=== PATIENT | female | born 1985 | race American Indian/Alaskan Native ===

== ENCOUNTER 2020-03-24 20:21 | Emergency (ER) | payer SELFPAY ==
[2020-03-24 22:17] VITALS: BP 141/74
--- NOTE | 2020-03-24 23:01 | XRay Report ---
CHEST 2 VIEWS INDICATION / CLINICAL INFORMATION: Shortness of breath, cough. COMPARISON: None available. FINDINGS: SUPPORT DEVICES: None. HEART / MEDIASTINUM: No significant abnormality. LUNGS / PLEURA: No significant pulmonary or pleural abnormality. No pneumothorax. ADDITIONAL FINDINGS: No significant additional findings. IMPRESSION: 1. No acute findings. Signer Name: Prema Bro MD Signed: 03/24/2020 10:57 PM Workstation Name: [id number]
[2020-03-25] MEDS ORDERED: predniSONE 20 MG TAB PO ONE (01:49)
[2020-03-25] MEDS ORDERED: ACETAMINOPHEN 500 MG TAB PO ONE (01:49)
--- NOTE | 2020-03-25 02:33 | Emergency Department Report ---
- General Chief Complaint: Upper Respiratory Infection Stated Complaint: COUGH, SHORTNESS OF BREATH Source: EMS Mode of arrival: Ambulatory Limitations: No Limitations - History of Present Illness Initial Comments: Patient is a 34-year-old -[place] female with a history of heavy tobacco abuse who presents to the ED with complaint of acute onset persistent nasal and sinus congestion, frontal sinus pressure and headache, persistent dry cough with pleuritic chest pain for the last 2 weeks. Patient states that her own daughter has had similar symptoms. Patient denies fever, chills, nausea, vomiting, dizziness, syncope, abdominal pain, sore throat, dysuria, urinary frequency and urgency, chest pain, shortness of breath, change in vision, palpitations, neck pain or back pain. MD Complaint: cough, nasal congestion, sinus pain -: Sudden, week(s) (2) Severity: moderate Severity scale (0 -10): 4 Quality: dull, aching Consistency: constant Improves With: nothing Worsens With: nothing Context: sick contacts Associated Symptoms: denies other symptoms, chills, headache, rhinorrhea, nasal congestion, cough. denies: fever, diaphoresis, sore throat, chest pain, shortness of breath, abdominal pain, nausea, vomiting, diarrhea, dysuria, rash, right sweats, weight loss, epistaxis, ear pain, other Treatments Prior to Arrival: none - Related Data Previous Rx's Medication Instructions Recorded Last Taken Type Azithromycin [Zithromax Z-BERNADETTE] 250 mg PO DAILY #6 tablet 03/25/20 Unknown Rx Benzonatate [Tessalon Perles] 100 mg PO Q8HR #30 capsule 03/25/20 Unknown Rx Cetirizine HCl [Zyrtec 10mg tab] 10 mg PO DAILY #30 tablet 03/25/20 Unknown Rx Ibuprofen [Motrin] 800 mg PO Q8HR PRN #24 tablet 03/25/20 Unknown Rx predniSONE [Deltasone] 40 mg PO QDAY #10 tab 03/25/20 Unknown Rx Allergies Allergy/AdvReac Type Severity Reaction Status Date / Time No Known Allergies Allergy Unverified 03/07/13 00:44 ED Review of Systems ROS: Stated complaint: COUGH, SHORTNESS OF BREATH Other details as noted in HPI Constitutional: denies: chills, fever Eyes: denies: eye pain, eye discharge, vision change ENT: congestion, other (Frontal sinus pressure). denies: ear pain, throat pain Respiratory: cough. denies: shortness of breath, wheezing Cardiovascular: denies: chest pain, palpitations Endocrine: no symptoms reported Gastrointestinal: denies: abdominal pain, nausea, diarrhea Genitourinary: denies: urgency, dysuria, discharge Musculoskeletal: denies: back pain, joint swelling, arthralgia Skin: denies: rash, lesions Neurological: denies: headache, weakness, paresthesias Psychiatric: denies: anxiety, depression Hematological/Lymphatic: denies: easy bleeding, easy bruising ED Past Medical Hx - Past Medical History Previous Medical History?: No - Surgical History Hx Breast Surgery: Yes - Social History Smoking Status: Current Some Day Smoker Substance Use Type: None - Medications Home Medications: Home Medications Medication Instructions Recorded Confirmed Last Taken Type Azithromycin [Zithromax Z-BERNADETTE] 250 mg PO DAILY #6 tablet 03/25/20 Unknown Rx Benzonatate [Tessalon Perles] 100 mg PO Q8HR #30 capsule 03/25/20 Unknown Rx Cetirizine HCl [Zyrtec 10mg tab] 10 mg PO DAILY #30 tablet 03/25/20 Unknown Rx Ibuprofen [Motrin] 800 mg PO Q8HR PRN #24 tablet 03/25/20 Unknown Rx predniSONE [Deltasone] 40 mg PO QDAY #10 tab 03/25/20 Unknown Rx ED Physical Exam - General Limitations: No Limitations General appearance: alert, in no apparent distress - Head Head exam: Present: atraumatic, normocephalic, normal inspection - Eye Eye exam: Present: normal appearance, PERRL, EOMI Pupils: Present: normal accommodation - ENT ENT exam: Present: mucous membranes moist, TM's normal bilaterally, normal external ear exam, other (Grossly congested nasal passages, palpable frontal sinus tenderness) - Neck Neck exam: Present: normal inspection, full ROM - Respiratory Respiratory exam: Present: normal lung sounds bilaterally. Absent: respiratory distress, wheezes, rales, rhonchi, chest wall tenderness, accessory muscle use, decreased breath sounds - Cardiovascular Cardiovascular Exam: Present: regular rate, normal rhythm, normal heart sounds. Absent: systolic murmur, diastolic murmur, rubs, gallop - GI/Abdominal GI/Abdominal exam: Present: soft, normal bowel sounds. Absent: tenderness, guarding, rebound, hyperactive bowel sounds, hypoactive bowel sounds, organomegaly - Extremities Exam Extremities exam: Present: normal inspection, full ROM, normal capillary refill - Back Exam Back exam: Present: normal inspection - Neurological Exam Neurological exam: Present: alert, oriented X3 - Psychiatric Psychiatric exam: Present: normal affect, normal mood - Skin Skin exam: Present: warm, dry, intact, normal color. Absent: rash ED Course Vital Signs 03/24/20 22:12 Temperature 98.0 F Pulse Rate 90 Respiratory 18 Rate Blood Pressure 141/74 O2 Sat by Pulse 100 Oximetry ED Medical Decision Making - Radiology Data Radiology results: report reviewed, image reviewed Findings [facility] [address] [place] [address] XRay Report Signed Patient: STACEY TANNER MR #: [id number] : 1985 Acct:[id number] Age/Sex: 34 / F ADM Date: 03/24/20 Loc: ED Attending Dr: Ordering Physician: ED MD PRIMO Date of Service: 03/24/20 Procedure(s): XR chest routine 2V Accession Number(s): [id number] cc: ED DOCMD Fluoro Time In Minutes: CHEST 2 VIEWS INDICATION / CLINICAL INFORMATION: Shortness of breath, cough. COMPARISON: None available. FINDINGS: SUPPORT DEVICES: None. HEART / MEDIASTINUM: No significant abnormality. LUNGS / PLEURA: No significant pulmonary or pleural abnormality. No pneumothorax. ADDITIONAL FINDINGS: No significant additional findings. IMPRESSION: 1. No acute findings. Signer Name: Prema Bro MD Signed: 03/24/2020 10:57 PM Workstation Name: [id number] Transcribed By: JR Dictated By: Prema Bro MD Electronically Authenticated By: Prema Bro MD Signed Date/Time: 03/24/202256 DD/ 55 TD/TT: - Medical Decision Making This is a 34-year-old -[place] female with a history of heavy tobacco abuse who presents to the ED with complaint of acute onset persistent nasal and sinus congestion, frontal sinus pressure and headache, persistent dry cough with pleuritic chest pain for the last 2 weeks. Patient states that her own daughter has had similar symptoms. In the ED, patient is alert and oriented x3 and is not in any distress. Patient was treated for pain in the ED and also treated with oral prednisone. Chest x-ray shows no acute cardiopulmonary abnormalities or pneumonitis. Patient was discharged home on medications and advised to follow-up with her primary care physician in 7 to 10 days for reevaluation or return to the ED immediately if symptoms get worse. - Differential Diagnosis Pneumonia; bronchitis; sinusitis; URI; viral syndrome; COVID-19 Critical care attestation.: If time is entered above; I have spent that time in minutes in the direct care of this critically ill patient, excluding procedure time. ED Disposition Clinical Impression: Acute upper respiratory infection, Acute non-recurrent frontal sinusitis Acute bronchitis Qualifiers: Bronchitis organism: other organism Qualified Code(s): J20.8 - Acute bronchitis due to other specified organisms Disposition: - TO HOME OR SELFCARE Is pt being admited?: No Does the pt Need Aspirin: No Condition: Stable Instructions: Acute Bronchitis (ED), Cough, Adult, [id number], Upper Respiratory Infection, Adult, [id number], Sinusitis, Adult, [id number], Acute Bronchitis, Adult, [id number] Additional Instructions: Chest x-ray shows no acute cardiopulmonary abnormalities or pneumonitis. Therefore take medications with food, drink plenty of fluids and follow-up with your primary care physician in 7 to 10 days for reevaluation. Return to the ED immediately if symptoms get worse. Consider quiting tobacco abuse Prescriptions: predniSONE [Deltasone] 40 mg PO QDAY #10 tab Ibuprofen [Motrin] 800 mg PO Q8HR PRN #24 tablet PRN Reason: Pain , Severe (7-10) Benzonatate [Tessalon Perles] 100 mg PO Q8HR #30 capsule Azithromycin [Zithromax Z-BERNADETTE] 250 mg PO DAILY #6 tablet Cetirizine HCl [Zyrtec 10mg tab] 10 mg PO DAILY #30 tablet Referrals: [facility] [Provider Group] - 7-10 days Forms: Work/School Release Form(ED) Time of Disposition: 02:40 Print Language: MALAGASY
== END 2020-03-25 03:15 | disposition home or self-care (01) ==
LOC: ED 20:21
DX: J06.9 Acute upper respiratory infection, unspecified (principal); J01.10 Acute frontal sinusitis, unspecified; J20.8 Acute bronchitis due to other specified organisms; F17.200 Nicotine dependence, unspecified, uncomplicated
CPT/HCPCS: 71046; 99283; J7512

== ENCOUNTER 2021-12-31 09:57 | Emergency (ER) | payer BC, MEDICAID ==
--- NOTE | 2021-12-31 13:57 | Emergency Department Report ---
Minor Respiratory - HPI Chief Complaint: Adult Asthma Stated Complaint: COLD SYM/ASTHMA Time Seen by Provider: 12/31/21 12:11 Duration: 3 Days Minor Respiratory: Yes Rhinorrhea, Yes Sore Throat, Yes Able to Tolerate Fluids, Yes Cough, Yes Sick Contacts, Yes Fever, No Ear Pain, No Hemoptysis, No Chest Pain, No Shortness of Breath Other History: This is a 36-year-old -N[place]alese female who presents to the emergency room with a cough, chills, and shortness of breath for 3 days. Past medical history of asthma. Patient also reports chills and myalgia. She is currently taking cough suppressant medication with minimal change in symptoms. Patient states she ran out of her inhaler. She no longer have a primary care doctor for refills. States shortness of breath has improved today but occasionally occurs with coughing spells. Denies fever, chest pain, wheezing, headache, fatigue. ED Review of Systems ROS: Stated complaint: COLD SYM/ASTHMA Other details as noted in HPI Constitutional: chills. denies: fever ENT: denies: ear pain, throat pain Respiratory: cough. denies: shortness of breath, wheezing Musculoskeletal: myalgia. denies: back pain, joint swelling, arthralgia Skin: denies: rash, lesions Neurological: denies: headache, weakness, paresthesias ED Past Medical Hx - Past Medical History Previous Medical History?: No - Surgical History Hx Breast Surgery: Yes - Social History Smoking Status: Current Some Day Smoker Substance Use Type: None - Medications Home Medications: Home Medications Medication Instructions Recorded Confirmed Last Taken Type Azithromycin [Zithromax Z-BERNADETTE] 250 mg PO DAILY #6 tablet 03/25/20 Unknown Rx Benzonatate [Tessalon Perles] 100 mg PO Q8HR #30 capsule 03/25/20 Unknown Rx Cetirizine HCl [Zyrtec 10mg tab] 10 mg PO DAILY #30 tablet 03/25/20 Unknown Rx Ibuprofen [Motrin] 800 mg PO Q8HR PRN #24 tablet 03/25/20 Unknown Rx predniSONE [Deltasone] 40 mg PO QDAY #10 tab 03/25/20 Unknown Rx Albuterol Sulfate [Proair 90 mcg IH Q6H PRN #1 inh 12/31/21 Unknown Rx Respiclick] Benzonatate 200 mg PO TID PRN #20 cap 12/31/21 Unknown Rx predniSONE [Deltasone] 40 mg PO QDAY #10 tab 12/31/21 Unknown Rx Minor Respiratory Exam - Exam General: Vital signs noted. No distress. Alert and acting appropriately. HEENT: Yes Moist Mucous Membranes, Yes Rhinorrhea, No Pharyngeal Erythema, No Pharyngeal Exudates, No Conjuctival Injection, No Frontal Tenderness, No Maxillary Tenderness Ear: Neither TM Bulge, Neither TM Erythema, Neither EAC Pain, Neither EAC Discharge Neck: Yes Supple, No Adenopathy Lungs: Yes Good Air Exchange, No Wheezes, No Ronchi, No Stridor, No Cough, No Labored Respirations, No Retractions, No Use of Accessory Muscles, No Other Abnormal Lung Sounds Heart: Yes Regular, No Murmur Abdomen: Yes Normal Bowel Sounds, No Tenderness, No Peritoneal Signs Neurologic: Alert and oriented, no deficits. Musculoskeletal: Unremarkable. ED Course Vital Signs 12/31/21 10:18 Temperature 99.1 F Pulse Rate 95 H Respiratory 18 Rate Blood Pressure 132/82 [Left] O2 Sat by Pulse 99 Oximetry Vital Signs 12/31/21 12/31/21 10:18 14:11 Temperature 99.1 F Pulse Rate 95 H 64 Respiratory 18 18 Rate Blood Pressure 132/82 142/98 [Left] O2 Sat by Pulse 99 100 Oximetry ED Medical Decision Making - Medical Decision Making 36 y.o. female that presents with viral symptoms. Past medical history of asthma. Patient examined by me and stable. No distress noted. Vitals normal. She denies shortness of breath, chest pain, weakness, headache, or fever. No vocal changes or uvula deviation to be concern for [employer]ING [employer]ANT. There is low suspicion of influenza, pneumonia, strep throat, or sinusitis. Labs and imaging are deferred at this time. There are no indications for antibiotics at this time. Will start supportive medication such as cough suppressant and inhaler. Instructed to continue [id number] cold and flu medications, increase fluid intake, and wash hands frequently. Discharged home stable with strict return instructions. Follow up with oil processing technician in 2-3 days. Return to school on Monday. Critical care attestation.: If time is entered above; I have spent that time in minutes in the direct care of this critically ill patient, excluding procedure time. ED Disposition Clinical Impression: Chills, Myalgia, Viral illness Cough Qualifiers: Cough type: acute Qualified Code(s): R05.1 - Acute cough Disposition: 01 HOME / SELF CARE / HOMELESS Is pt being admited?: No Condition: Stable Instructions: Viral Respiratory Infection, [id number] Prescriptions: Benzonatate 200 mg PO TID PRN #20 cap PRN Reason: Cough predniSONE [Deltasone] 40 mg PO QDAY #10 tab Albuterol Sulfate [Proair Respiclick] 90 mcg IH Q6H PRN #1 inh PRN Reason: Wheezing Referrals: ALFREDA FELIX MD [Primary Care Provider] - 3-5 Days [facility] [Provider Group] - 3-5 Days Forms: Work/School Release Form(ED) Time of Disposition: 13:38
[2021-12-31 14:12] VITALS: BP 142/98
== END 2021-12-31 14:11 | disposition home or self-care (01) ==
LOC: ED 09:57
DX: M79.18 Myalgia, other site (principal); B34.9 Viral infection, unspecified; R05.9 Cough, unspecified; R50.9 Fever, unspecified; F17.200 Nicotine dependence, unspecified, uncomplicated; Z98.890 Other specified postprocedural states; Z79.899 Other long term (current) drug therapy
CPT/HCPCS: 99282